=== PATIENT | male | born 1935 | race Caucasian/White ===

== ENCOUNTER → 2016-07-29 | Outpatient (CLI) | payer OTHER ==
[2016-07-29 09:46] LABS: BASE EXCESS 3.3 mEq/L (-3 to +3); BICARBONATE 26.9 mEq/L (22-26); CARBOXY HGB 1.5 % (0-5); COMMENTS - BLOOD GASES A+C+; DEVICE RA; METHEMOGLOBIN 1.3 % (0-1.5); PCO2 37 mm Hg (35-45); PO2 98 mm Hg (80-100); SITE LRA; TOTAL RESP RATE 16 resp/min; pH 7.47 (7.35-7.45)
== END | disposition home or self-care (01) ==
LOC: RES 08:36
PROVIDERS: Internal Medicine
DX: R06.02 Shortness of breath (principal)
CPT/HCPCS: 36600; 82803; 94010; 94726; 94729